=== PATIENT | male | born 1985 | race Two or more races ===

== ENCOUNTER 2020-04-26 23:40 | Emergency (ER) | payer BC ==
[~2020-04-26] VITALS: Ht 172.7 cm; Wt 90.7 kg
[2020-04-27 00:22] VITALS: BP 149/75
[2020-04-27] MEDS ORDERED: KETOROLAC TROMETH 60MG/2ML VIAL IM ONE (02:30)
[2020-04-27] MEDS ORDERED: methylPREDNISolone SOD SUCC 125 MG/2 ML VL IM ONE (02:30)
== END 2020-04-27 03:22 | disposition home or self-care (01) ==
LOC: ER 23:42
DX: M65.4 Radial styloid tenosynovitis [de Quervain] (principal); M79.89 Other specified soft tissue disorders
CPT/HCPCS: 96372; 99284; J1885; J2930